=== PATIENT | male | born 1975 | race Caucasian/White ===

== ENCOUNTER 2024-02-02 11:09 | Outpatient (CLI) | payer BC, SELFPAY ==
--- NOTE | ~2024-02-02 | XR_ITS ---
XR hip RT min 2V Ordering provider: Li Parker NP History: . Chronic RT hip pain, NKI . Comparison: September 21, 2017 FINDINGS: BONES: No acute fracture or dislocation. HIP JOINT SPACES: Severe osteoarthritic changes which has increased compared to previous study.. SACROILIAC JOINT SPACES/LUMBAR SPINE: The sacroiliac joint spaces are normal. Mild degenerative bahena es of the visualized lower lumbar spine. PUBIC SYMPHYSIS: Normal. SOFT TISSUES: Normal. IMPRESSION: No acute osseous abnormality pelvis and right hip. Severe osteoarthritic changes which has increased compared to previous study.. Reviewed, dictated and finalized at location A.
== END 2024-02-02 11:10 | disposition home or self-care (01) ==
LOC: CHSIMG 11:11
PROVIDERS: PCP Nurse Practitioner Family; Visit Provider Nurse Practitioner Family
DX: G89.29 Other chronic pain (principal); M25.551 Pain in right hip; M16.11 Unilateral primary osteoarthritis, right hip
CPT/HCPCS: 73502

== ENCOUNTER 2024-02-28 10:07 | Outpatient (CLI) | payer BC, SELFPAY ==
--- NOTE | 2024-02-28 10:26 | ECG_ITS ---
Test Date: 2024-02-28 10:33:20 Measurements Intervals [place] Rate: 67 P: -16 TN: 170 QRS: 28 QRSD: 114 T: 21 QT: 404 QTc: 427 Interpretive Statements SINUS RHYTHM INCOMPLETE RIGHT BUNDLE BRANCH BLOCK BORDERLINE ECG No previous ECG available for comparison Electronically Signed On 02-28-2024 11:34:06 CDT by Newton Groves D.O.
[2024-02-28 10:35] LABS: Appearance Urine Clear (Clear); Bilirubin Urine Negative (Negative); Blood Urine Negative (Negative); Color Urine Yellow (Yellow); Glucose Urine UA Negative (Negative); Ketones Urine Negative (Negative); Leukocyte Esterase Ur Negative LEU/UL (Negative); Nitrate Urine Negative (Negative); Protein Urine Negative (Negative); Specific Grav Ur 1.015 (1.001-1.035); Urobilinogen Urine 0.2 mg/dL (<2.0); pH Urine 5.5 (5.0-9.0)
[2024-02-28 10:39] LABS: Add Urine Microscopic? NO
[2024-02-28 10:41] LABS: Basophils Percent Auto 0.7 % (0.2-1.2); Eosinophils Absolute Auto 0.2 K/mm3 (0-0.3); Eosinophils Percent Auto 3.4 % (0-4.4); Hematocrit 42.8 % (42.0-52.0); Immature Granulocyte Absolute 0.01 K/mm3 (0.00-0.031); Immature Granulocyte Percent A 0.2 % (0-0.5); Lymphocytes Absolute Auto 1.84 K/mm3 (0.9-3.2); Lymphocytes Percent Auto 30.8 % (18.3-44.2); Mean Corpuscular HGB Conc 32.7 g/dl (32-36); Mean Corpuscular Hemoglobin 31.3 pg (26-34); Mean Corpuscular Volume 95.7 fl (80-100); Monocytes Absolute Auto 0.5 K/mm3 (0.1-0.6); Monocytes Percent Auto 8.5 % (2.6-8.5); Neutrophils Absolute Auto 3.4 K/mm3 (1.3-6.7); Neutrophils Percent Auto 56.4 % (45.5-73.1); Platelet Count Result 192 k/mm3 (150-375); Red Blood Count 4.47 M/mm3 (4.6-6.20); Red Cell Distribution Width 13.2 % (11.5-14.5)
[2024-02-28 10:55] LABS: Anion Gap 7 mmol/L (4-12); Blood Urea Nitrogen 33 mg/dL (9-20); Calcium 8.8 mg/dL (8.4-10.2); Carbon Dioxide 29 mmol/L (22-30); Chloride 102 mmol/L (98-107); Estimated Glomerular Filt Rate > 60; Glucose 96 mg/dL (65-110); Potassium 4.3 mmol/L (3.4-5.0); Sodium 138 mmol/L (137-145)
== END 2024-02-28 10:08 | disposition home or self-care (01) ==
PROVIDERS: PCP Nurse Practitioner Family; Visit Provider Orthopaedic Surgery
DX: E78.5 Hyperlipidemia, unspecified (principal); I10 Essential (primary) hypertension; R53.83 Other fatigue; E53.8 Deficiency of other specified B group vitamins; I45.10 Unspecified right bundle-branch block
CPT/HCPCS: 36415; 80048; 81003; 85025; 93005

== ENCOUNTER 2024-03-23 11:50 | Outpatient (CLI) | payer BC, SELFPAY ==
[2024-03-23 13:45] LABS: Albumin Level 4.2 g/dL (3.5-5.1)
[2024-03-23 13:49] LABS: Partial Thromboplastin Time 25.5 Seconds (22.3-36.8)
[2024-03-23 13:50] LABS: Urine Cotinine NEGATIVE
[2024-03-23 13:58] LABS: Hemoglobin A1C 5.4 % (<5.7)
[2024-03-23 14:48] LABS: MRSA (PCR) NOT DETECTED (NOT DETECTE)
== END 2024-03-23 11:51 | disposition home or self-care (01) ==
LOC: ANHSURGERY 11:54
PROVIDERS: PCP Nurse Practitioner Family; Visit Provider Orthopaedic Surgery
DX: M16.11 Unilateral primary osteoarthritis, right hip (principal); Z01.818 Encounter for other preprocedural examination
CPT/HCPCS: 80307; 82040; 83036; 85610; 85730; 86850; 86900; 86901; 87641

== ENCOUNTER 2024-04-05 01:33 | Day surgery (SDC) | payer BC, SELFPAY ==
[2024-03-23 11:59] VITALS: BMI 32.0
--- NOTE | 2024-03-23 12:27 | PC.NURSE ---
Report to the Outpatient Waiting Room, entrance under the green pavilion located off [facility], at time _6:00 AM on date __04/05/24 . Planned Procedure Time: _7:30 AM . Time changes happen often and if your time is changed the preop area will call you the afternoon before. - You and your visitor will be asked to self-screen and do not enter if you have any COVID symptoms. - A mask is optional within the hospital at this time. Patients may have clear liquids (water, carbonated beverages, clear teas, apple juice) until 3 hours prior to surgery( 4:30 AM) with a maximum of 20 ounces. - No food from midnight until time of surgery - Infants may have breast milk until 4 hours before surgery, infant formula 6 hours prior to surgery. - Children will be allowed to drink immediately following surgery. If applicable, please bring a bottle or sippy cup to assist with drinking. Juice, water, soda, and popsicles are readily available. For infants on formula, please bring formula the day of surgery. Pacifiers are allowed. Take the following medications with a SIP of water the morning of surgery: ___BUSPIRONE,HYDROXYZINE IF NEEDED FOR ANXIETY,METOPROLOL,VENLAFAXINE,VERAPAMIL DO NOT STOP ANY OF YOUR OTHER PRESCRIPTION MEDICATIONS PRIOR TO SURGERY ?EXCEPT THE FOLLOWING Medications to discontinue per physician ____ASPIRIN AND MELOXICAM PER DR FATIMA,HOLD ALL VITAMINS AND SUPPLEMENT 3 DAYS PRE OP.LAST DOSE 04/01/24 Please no make-up, nail french, hairspray, perfume, deodorant, or body powder the day of surgery. No jewelry (including any body piercings) or valuables the day of surgery, leave them at home. Please take a shower or bath the night before, or the morning of, surgery with an antibacterial soap. Wear comfortable, loose fitting clothing. Children are encouraged to wear pajamas. - Jewelry must be removed prior to entering the operating room. Rings and piercings that are not removed may be cut off. - The hospital will not accept responsibility for valuables. - Please leave all valuables, including medications, at home the day of surgery. If you are going home after surgery, a licensed oil transport driver must drive you home. - NO public transportation without another adult if you receive anesthesia. - We recommend that an adult stay with you for 24 hours following discharge. - We also recommend that you do not drive, make important decision, drink alcoholic beverages, or take any drugs that were not prescribed by your health care provider for at least 24 hours after your discharge time. Follow any additional instructions given to you from your surgeon. If you or anyone in your household have experienced Covid symptoms in the past week, please notify your surgeon or the nurse liaison at the phone number below for possible testing. VERBAL AND WRITTEN instructions given to __PATIENT and asked if any additional questions and then verbalized understanding. Patient advised to call surgeon office or pre surgery nurse liaison [phone] if any additional questions.
[2024-03-23 12:50] VITALS: BP 125/80; PULSE 81; RESP 18; TEMP 36.8; O2SAT 98
[2024-04-05] VITALS (7 sets, daily range): BP systolic 104–117; BP diastolic 59–66; PULSE 62–76; RESP 13–18; TEMP 36.3–36.7; O2SAT 99–100; BMI 31.6
[2024-04-05] MEDS: LACTATED RINGERS 1,000 ML 30 ML IV CONT ×2 (06:30→08:50)
--- NOTE | 2024-04-05 07:07 | WPDANESEPPF ---
Anes - Initial Pre Proc Eval Procedure: Operation Date: 04/05/24 07:30 Proposed Procedures p Right Total Hip Arthroplasty - Pino Escudero MD Date/Time: 04/05/24 07:07 Surgeon: Pino Escudero MD Pre Op Diagnosis: right hip DJD Patient Data Age: 48 Gender: M Height: 1.8 m Weight: 104.2 kg Last Vital Signs Temp 98.3 F 03/23/24 12:50 Pulse 81 03/23/24 12:50 Resp 18 03/23/24 12:50 BP 125/80 03/23/24 12:50 Pulse Ox 98 03/23/24 12:50 O2 Del Method Room Air 03/23/24 12:50 Allergies Allergy/AdvReac Type Severity Reaction Status Date / Time No Known Allergies Allergy Verified 03/27/24 12:52 Home Medications Medication Instructions Recorded Confirmed Type buspirone 30 mg tablet 30 mg PO BID 06/13/19 03/23/24 History clonidine HCl 0.1 mg tablet 0.1 mg PO DAILY 06/13/19 03/23/24 History hydroxyzine HCl 25 mg tablet 25 mg PO QID PRN Anxiety 09/15/19 03/23/24 History venlafaxine 37.5 mg 37.5 mg PO DAILY 09/15/19 03/23/24 History capsule,extended release 24 hr atorvastatin 20 mg tablet See Rx Instructions .Route 04/27/23 03/23/24 Rx .COMPLEX #90 tabs verapamil 120 mg 24 hr See Rx Instructions .Route 04/27/23 03/23/24 Rx capsule,extended release .COMPLEX #90 caps metoprolol succinate 50 mg See Rx Instructions .Route 04/30/23 03/23/24 Rx tablet,extended release 24 hr .COMPLEX #90 tabs trazodone 50 mg tablet See Rx Instructions .Route 05/07/23 03/23/24 Rx .COMPLEX #90 tabs meloxicam 7.5 mg tablet 7.5 mg PO BID PRN pain #60 tabs 02/02/24 03/23/24 Rx aspirin 81 mg tablet,delayed 81 mg PO DAILY 03/23/24 03/23/24 History release (Adult Low Dose Aspirin) glucosamine-chondroitin 500 mg-400 1 tablet PO DAILY 03/23/24 03/23/24 History mg tablet magnesium 200 mg tablet 200 mg PO DAILY 03/23/24 03/23/24 History omeprazole 20 mg capsule,delayed 20 mg PO DAILY 03/23/24 03/23/24 History release potassium 99 mg tablet 99 mg PO DAILY 03/23/24 03/23/24 History vitamin B complex 1 tablet PO DAILY 03/23/24 03/23/24 History vitamin E 1,000 unit tablet 1 tablet PO DAILY 03/23/24 03/23/24 History chlorhexidine gluconate 4 % 1 applic topical ONCE #237 mL 03/24/24 Rx topical liquid (Hibiclens) Patient hx anesthesia problems: none Family hx anesthesia problems: none Results Review: All pre-operative results and documents have been reviewed as part of the pre-operative evaluation. 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 Chronic low back pain ABNER (generalized anxiety disorder) ABNER (generalized anxiety disorder) H/O deep venous thrombosis HTN (hypertension) Hyperlipemia Hyperlipidemia Hypertension Insomnia Insomnia Osteoarthritis Overweight Severe obesity (BMI >= 40) Sinusitis Vitamin B12 deficiency Vitamin B12 deficiency Surgical History Surgical History History of back surgery Hx of right inguinal hernia repair Family History Family History Father Hypertension Mother Anxiety Social History Social History Smoking packs per day: 0.5 Smoking cigarettes per day: 10.0 Years smoked: 5 Smoking pack-years: 2.50 Smoking status: Former smoker Tobacco type: cigarettes Smoking end date: 08/09/94 Additional smoking assessment comments: DENIES ANY FORM OF TOBACCO USE Alcohol intake: current Alcohol use details: social Substance use: never Substance use type: does not use Lack of Transportation: No Lack of Food: Never True Current Housing: I Have Housing Concerned About Future Housing: No Difficulty Paying Gas/Electric Bills: No Difficulty Paying for Meds: No Currently Unemployed: No Education: High School Diploma/GED Living arrangements: with fa
[2024-04-05] MEDS: ACETAMINOPHEN 500 MG TABLET 1000 MG PO (07:08)
[2024-04-05] MEDS: TRANEXAMIC ACID 1,000MG/ISO100 1,000 MG/100 ML BAG 200 MG IVPB (07:10)
--- NOTE | 2024-04-05 07:16 | WPDHPUPDATE1 ---
History and Physical Update Update Date/Time: 04/05/24 07:16 History and Physical has been reviewed, including an updated exam of the patient. There are NO changes in the patient's condition. Risks, benefits, and alternatives have been discussed and questions answered. Patient agrees to proceed with procedure.
[2024-04-05] MEDS: ceFAZolin 2 GM/D5W 50 ML 2 GM/50 ML BAG IVPB (07:33)
--- NOTE | 2024-04-05 09:31 | W.PM.PROC2 ---
Procedure Note - Detailed Date of Procedure 04/05/24 Pre-op Diagnosis right hip DJD Post-op Diagnosis Same Procedure Performed NONE Surgeon Pino Escudero MD Anesthesia General Description of Procedure THE PATIENT WAS TAKEN TO THE OPERATING ROOM AND PLACED UNDER GENERAL ANESTHESIA. ONCE HE WAS PLACED IN THE LATERAL DECUBITUS HE HAD MASSIVE AMOUNTS OF DIARRHEA WITH FOUL SMELLING FECAL MATERIAL. HE WAS CLEANED AND HE HAD RECURRENT DIARRHEA MULTIPLE TIMES. GASTRO INTESTINAL INFECTION WAS SUSPECTED. THIS POSED A RISK FOR CONTAMINATION TO THE STERILE FIELD AND WITH ADVICE FROM THE OPERATION ROOM CHARGE STAFF AND MYSELF THE CASE WAS CANCELLED DUE TO RISK OF CONTAMINATION TO THE INSTRUMENTATION. THE PATIENT WAS EXTUBATED AND SENT TO RECOVERY ROOM. Estimated Blood Loss 0 Complications None Disposition PACU
== END 2024-04-05 10:05 | disposition home or self-care (01) ==
PROVIDERS: PCP Nurse Practitioner Family; Visit Provider Orthopaedic Surgery
PROC: (CPT 27130; principal; 2024-04-05 07:30)
DX: M16.11 Unilateral primary osteoarthritis, right hip (principal); R19.7 Diarrhea, unspecified; Z53.09 Procedure and treatment not carried out because of other contraindication; D47.Z2 Castleman disease; I10 Essential (primary) hypertension; E78.5 Hyperlipidemia, unspecified; E53.8 Deficiency of other specified B group vitamins; F41.1 Generalized anxiety disorder; Z86.718 Personal history of other venous thrombosis and embolism; Z87.891 Personal history of nicotine dependence; Z79.82 Long term (current) use of aspirin; E66.9 Obesity, unspecified; Z68.31 Body mass index [BMI] 31.0-31.9, adult
CPT/HCPCS: 27130; A9270; J0171; J0690; J1100; J1170; J1596; J1885; J2250; J2270; J2371; J2405; J2704; J2795; J3010; J7120

== ENCOUNTER 2024-04-07 14:57 | Outpatient (CLI) | payer BC, SELFPAY ==
[2024-04-07 15:57] LABS: Toxigenic C. Diff NEGATIVE (NEGATIVE)
== END 2024-04-07 14:58 | disposition home or self-care (01) ==
LOC: CHSLAB 14:59
PROVIDERS: PCP Nurse Practitioner Family; Visit Provider Nurse Practitioner Family
DX: R19.7 Diarrhea, unspecified (principal)
CPT/HCPCS: 87493

== ENCOUNTER 2024-04-19 02:24 | Day surgery (SDC) | payer BC, SELFPAY ==
[2024-04-12 15:10] VITALS: BMI 32.0
--- NOTE | 2024-04-12 15:17 | PC.NURSE ---
04/05/24 ON OR TABLE FOR RTHA- HAD FOUL SMELLING DIARRHEA- SURGERY CANCELLED. STATES HE WENT TO HIS PCP. UNKNOWN CAUSE FOR DIARRHEA. NO OTHER CHANGE IN HEALTH HX
--- NOTE | 2024-04-12 15:19 | PC.NURSE ---
Report to the Outpatient Waiting Room, entrance under the green pavilion located off [facility], at time _6AM on date _04/19/24 . Planned Procedure Time: __730AM .? Time changes happen often and if your time is changed the preop area will call you the afternoon before. - You and your visitor will be asked to self-screen and do not enter if you have any COVID symptoms. Please call surgeon(4:30 AM) if you need to reschedule. - A mask is optional within the hospital at this time. Patients may have clear liquids (water, carbonated beverages, clear teas, apple juice) until 3 hours prior to surgery with a maximum of 20 ounces. - No food from midnight until time of surgery and no smoking - Infants may have breast milk until 4 hours before surgery, infant formula 6 hours prior to surgery. - Children will be allowed to drink immediately following surgery.? If applicable, please bring a bottle or sippy cup to assist with drinking. Juice, water, soda, and popsicles are readily available.? For infants on formula, please bring formula the day of surgery.? Pacifiers are allowed. Take only the following medications with a SIP of water on the morning of surgery:BUSPIRONE,HYDROXYZINE IF NEEDED FOR ANXIETY,METOPROLOL,VENLAFAXINE,VERAPAMIL DO NOT STOP ANY OF YOUR OTHER PRESCRIPTION MEDICATIONS PRIOR TO SURGERY EXCEPT THE FOLLOWING Medications to discontinue per physician _ASPIRIN AND MELOXICAM PER DR FATIMA. HOLD ALL VITAMINS AND SUPPLEMENTS 3 DAYS PRE OP LAST DOSE 04/15/24 Date to take last dose Please no make-up, nail italian, hairspray, perfume, deodorant, or body powder the day of surgery.? No jewelry (including any body piercings) or valuables the day of surgery, leave them at home.? Please take a shower or bath the night before, or the morning of, surgery with an antibacterial soap.? Wear comfortable, loose fitting clothing.? Children are encouraged to wear pajamas. - Jewelry must be removed prior to entering the operating room.? Rings and piercings that are not removed may be cut off. - The hospital will not accept responsibility for valuables.? - Please leave all valuables, including medications, at home the day of surgery. If you are going home after surgery, a licensed tanker truck driver must drive you home.? - NO public transportation without another adult if you receive anesthesia. - We recommend that an adult stay with you for 24 hours following discharge. - We also recommend that you do not drive, make important decision, drink alcoholic beverages, or take any drugs that were not prescribed by your health care provider for at least 24 hours after your discharge time. For Pediatric surgeries, we recommend two adults accompany the child home. Follow any additional instructions given to you from your surgeon. Telephone instructions given to __PT and asked if any additional questions and then verbalized understanding. Patient advised to call surgeon office or pre surgery nurse liaison [phone] if any additional questions.
[2024-04-19] VITALS (12 sets, daily range): BP systolic 95–118; BP diastolic 47–73; PULSE 57–82; RESP 12–16; TEMP 35.9–37.1; O2SAT 98–100
--- NOTE | ~2024-04-19 | XR_ITS ---
EXAMINATION: XR hip RT 1V DATE: 04/19/2024 11:36 INDICATION: Postoperative evaluation following right total hip arthroplasty TECHNIQUE: Anteroposterior and lateral views of the right hip were obtained. COMPARISON: 02/28/2024 FINDINGS: Interval placement of a right total hip arthroplasty which appears well seated in near anatomic align ment. Expected subcutaneous gas in the postoperative bed. No fractures identified. Several surgical clips in the right hemipelvis. IMPRESSION: 1. Right total hip arthroplasty, negative for postoperative purposes. Reviewed, dictated and finalized at location B.
[2024-04-19] MEDS: ACETAMINOPHEN 500 MG TABLET 1000 MG PO (06:20)
[2024-04-19] MEDS: LACTATED RINGERS 1,000 ML 30 ML IV CONT ×2 (06:25→11:27)
[2024-04-19] MEDS: TRANEXAMIC ACID 1,000MG/ISO100 1,000 MG/100 ML BAG 200 MG IVPB (06:30)
--- NOTE | 2024-04-19 07:04 | WPDANESEPPF ---
Anes - Initial Pre Proc Eval Procedure: Operation Date: 04/19/24 07:30 Proposed Procedures p Right Total Hip Arthroplasty - Pino Escudero MD Date/Time: 04/19/24 07:04 Surgeon: Pino Escudero MD Pre Op Diagnosis: Right Hip DJD Patient Data Age: 48 Gender: M Height: 1.8 m Weight: 101.3 kg Last Vital Signs Temp 37.1 C 04/19/24 06:10 Pulse 71 04/19/24 06:10 Resp 16 04/19/24 06:10 BP 110/63 04/19/24 06:10 Pulse Ox 100 04/19/24 06:10 O2 Del Method Room Air 04/19/24 06:10 Allergies Allergy/AdvReac Type Severity Reaction Status Date / Time No Known Allergies Allergy Verified 04/19/24 06:31 Home Medications Medication Instructions Recorded Confirmed Type buspirone 30 mg tablet 30 mg PO BID 06/13/19 04/19/24 History clonidine HCl 0.1 mg tablet 0.1 mg PO DAILY 06/13/19 04/19/24 History hydroxyzine HCl 25 mg tablet 25 mg PO QID PRN Anxiety 09/15/19 04/19/24 History venlafaxine 37.5 mg 37.5 mg PO DAILY 09/15/19 04/19/24 History capsule,extended release 24 hr atorvastatin 20 mg tablet See Rx Instructions .Route 04/27/23 04/19/24 Rx .COMPLEX #90 tabs verapamil 120 mg 24 hr See Rx Instructions .Route 04/27/23 04/19/24 Rx capsule,extended release .COMPLEX #90 caps meloxicam 7.5 mg tablet 7.5 mg PO BID PRN pain #60 tabs 02/02/24 04/19/24 Rx aspirin 81 mg tablet,delayed 81 mg PO DAILY 03/23/24 04/19/24 History release (Adult Low Dose Aspirin) glucosamine-chondroitin 500 mg-400 1 tablet PO DAILY 03/23/24 04/19/24 History mg tablet magnesium 200 mg tablet 200 mg PO DAILY 03/23/24 04/19/24 History omeprazole 20 mg capsule,delayed 20 mg PO DAILY 03/23/24 04/19/24 History release potassium 99 mg tablet 99 mg PO DAILY 03/23/24 04/19/24 History vitamin B complex 1 tablet PO DAILY 03/23/24 04/19/24 History vitamin E 1,000 unit tablet 1 tablet PO DAILY 03/23/24 04/19/24 History metoprolol succinate 50 mg See Rx Instructions .Route 04/17/24 Rx tablet,extended release 24 hr .COMPLEX #90 tabs trazodone 50 mg tablet See Rx Instructions .Route 04/17/24 Rx .COMPLEX #90 tabs Patient hx anesthesia problems: none Family hx anesthesia problems: none Results Review: All pre-operative results and documents have been reviewed as part of the pre-operative evaluation. 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 Chronic low back pain ABNER (generalized anxiety disorder) ABNER (generalized anxiety disorder) H/O deep venous thrombosis HTN (hypertension) Hyperlipemia Hyperlipidemia Hypertension Insomnia Insomnia Osteoarthritis Overweight Sinusitis Vitamin B12 deficiency Vitamin B12 deficiency Surgical History Surgical History History of back surgery Hx of right inguinal hernia repair Family History Family History Father Hypertension Mother Anxiety Social History Social History Smoking packs per day: 0.5 Smoking cigarettes per day: 10.0 Years smoked: 5 Smoking pack-years: 2.50 Smoking status: Former smoker Tobacco type: cigarettes Smoking end date: 08/09/94 Additional smoking assessment comments: DENIES ANY FORM OF TOBACCO USE Alcohol intake: current Alcohol use details: social Substance use: never Substance use type: does not use Lack of Transportation: No Lack of Food: Never True Current Housing: I Have Housing Concerned About Future Housing: No Difficulty Paying Gas/Electric Bills: No Difficulty Paying for Meds: No Currently Unemployed: No Education: High School Diploma/GED Living arrangements: with family Additional living arrangements comments: . 1 Child. Occupation/Education: occupation Additional occupation/educatio
--- NOTE | 2024-04-19 07:17 | WPDHPUPDATE1 ---
History and Physical Update Update Date/Time: 04/19/24 07:17 History and Physical has been reviewed, including an updated exam of the patient. There are NO changes in the patient's condition. Risks, benefits, and alternatives have been discussed and questions answered. Patient agrees to proceed with procedure.
[2024-04-19] MEDS: ceFAZolin 2 GM/D5W 50 ML 2 GM/50 ML BAG IVPB ×3 (07:28→23:36)
[2024-04-19] MEDS: SODIUM CHLORIDE 0.9% IV 37.7 ML, MORPHINE SULFATE INJ (*CRX) 2 MG, ROPivacaine HCL 1% 2... INFILTRATE (08:12)
[2024-04-19] MEDS: TRANEXAMIC ACID 1,000 MG/10 ML AMPUL 1000 MG IV PUSH (10:23)
--- NOTE | 2024-04-19 11:23 | W.PM.PROC2 ---
Procedure Note - Detailed Date of Procedure 04/19/24 Pre-op Diagnosis Right Hip DJD Post-op Diagnosis Same Procedure Performed R KESHA Surgeon Pino Escudero MD Anesthesia General Description of Procedure THE PATIENT WAS TAKEN TO THE OPERATING ROOM IN STABLE CONDITION AND WAS PLACED IN THE LATERAL DECUBITUS AND THE RIGHT LOWER EXTREMITY WAS PREPPED AND DRAPED IN THE STERILE FASHION. INCISION WAS MADE IN THE POSTERIOR LATERAL SIDE OF THE HIP, DOWN TO THE FASCIA LAYER. THE FASCIA WAS INCISED. THE HIP WAS EXPOSED. THE SHORT EXTERNAL ROTATORS WERE EXPOSED. THE SCIATIC NERVE WAS IDENTIFIED. INCISION WAS MADE THROUGH THE SHORT EXTERNAL ROTATORS AND THE CAPSULE OF THE HIP JOINT. THE HIP WAS DISLOCATED. AN OSTEOTOMY WAS MADE TO THE FEMORAL NECK ABOUT 1 CM PROXIMAL TO THE LESSER TROCHANTER. THE ACETABULUM WAS EXPOSED. THERE WAS SEVERE DJD SEEN. BEGINNING WITH A 49 REAMER THE ACETABULUM WAS REAMED TO 57 MM. A 57 MM TRIAL WAS PLACED IN 35 DEG OF ABDUCTION AND ANTEVERSION WAS IN ALIGNMENT WITH THE TRANS ACETABULAR LIGAMENT. THE FIT WAS EXCELLENT. THE TRIAL WAS REMOVED. A 58 MM BIOMET G7 COMPONENT WAS THEN TAPPED IN TO PLACE IN 35 DEG OF ABDUCTION AND ANTEVERSION IN ALIGNMENT WITH THE TRANSVERSE ACETABULAR LIGAMENT. THE FIT WAS EXCELLENT. THE ACETABULAR LINER WAS PLACED AND CHECKED FOR STABILITY. NEXT THE FEMUR WAS PREPARED WITH INITIAL CANAL FINDER THEN SEQUENTIAL BROACHING WITH A TAPERLOC HIP SYSTEM, UNTIL A 9 BROACH FIT WELL IN 15 OF ANTEVERSION. A 0 HIGH OFFSET NECK WITH 36 MM HEAD TRIAL WAS PLACED. THE SHUCK TEST WAS EXCELLENT AND THE STABILITY IN FLEXION AND ROTATION WAS EXCELLENT. LEG LENGTHS WERE GROSSLY EQUAL. TRIALS WERE REMOVED. A BIOMET TAPERLOC 9 STEM WAS PLACED WITH A HIGH OFFSET NECK. THE FIT WAS EXCELLENT IN 15 DEG OF ANTEVERSION. A 0 CERAMIC 36 MM FEMORAL HEAD WAS PLACED. THE HIP WAS TRIALED AND THE STABILITY WAS EXCELLENT WERE THE LEG LENGTHS AND THE SHUCK TEST. THE WOUND WAS IRRIGATED WITH STERILE BETADINE AND WATER FOR 3 MIN. THEN WASHED AGAIN. THE SCIATIC NERVE WAS IDENTIFIED AGAIN. THE CAPSULE AND THE EXTERNAL ROTATORS WERE APPROXIMATED WITH NUMBER 1 VICRYL. THE FASCIA WITH No 2 QUIL AND THE SUB CUTANEOUS LAYER WITH 2-0 ABSORBABLE SUTURE AND A RUNNING 3-0 SUBCUTICULAR STITCH FOR THE SKIN. DERMABOND WAS PLACED AND STERILE DRESSING WAS APPLIED. PATIENT WAS PLACED BACK ON TO THE SUPINE POSITION AND WAS EXTUBATED Estimated Blood Loss 1,000 Complications No immediate complications Condition Stable Disposition PACU
[2024-04-19] MEDS: fentaNYL CITRATE INJ (*CRX) 100 MCG/2 ML VIAL 25 MCG IV PUSH (11:38)
--- NOTE | 2024-04-19 12:00 | SUR.PHASEI ---
Notified Dr. Ho of patient's complaint of right eye pain with redness and slight swelling. Corneal abrasion protocol ordered.
[2024-04-19] MEDS: ARTIFICIAL TEARS OPHTH SOLN 15 ML BOTTLE 1 DROP EACH EYE (12:09)
[2024-04-19] MEDS: PROPARACAINE HCL 0.5% 15 ML OPHTH SOLN 1 DROP EACH EYE (12:09)
--- NOTE | 2024-04-19 13:14 | PC.NURSE ---
This patient, Julien Maddox, was admitted to [facility] Surg Room 303-01. Patient/family oriented to hospital policies and general routines including ID bracelet, bed and alarms, visiting hours, pain management, procedures, bathroom and other care routines, personal items, smoking policy, room service/diet, and visiting hours. Information on how to activate the Rapid Response Team has been discussed. Patient/Family are encouraged to report perceived risks to care and to ask questions if they do not understand what they are told or what they should do.
[2024-04-19] MEDS: FAMOTIDINE 20 MG TABLET PO ×2 (13:21→20:27)
[2024-04-19] MEDS: ASPIRIN 325 MG ENTERIC TABLET PO ×2 (13:21→20:26)
[2024-04-19] MEDS: SENNA/DOCUSATE SODIUM TABLET 2 TAB PO ×2 (13:21→17:39)
[2024-04-19] MEDS: KETOROLAC 15 MG/ML VIAL (*BKC) IV PUSH ×3 (13:22→23:35)
[2024-04-19] MEDS: polyethylene glycoL 3350 17 GM POWD.PACK PO (13:23)
[2024-04-19] MEDS: HYDROcodone/acetaminophen (*CRX) 10-325 MG TABLET 1 TAB PO (13:29)
[2024-04-19] MEDS: ONDANSETRON INJ 4 MG/2 ML VIAL IV PUSH (15:19)
[2024-04-19] MEDS: busPIRone HCL 10 MG TABLET 30 MG PO (17:39)
[2024-04-19] MEDS: ACETAMINOPHEN 500 MG TABLET PO (20:25)
[2024-04-19] MEDS: cloNIDine HCL 0.1 MG TABLET PO (20:26)
[2024-04-19] MEDS: ATORVASTATIN 20 MG TABLET BY MOUTH (20:27)
[2024-04-20 02:20] VITALS: BP 106/61; PULSE 71; RESP 18; TEMP 36.4; O2SAT 99
[2024-04-20] MEDS: KETOROLAC 15 MG/ML VIAL (*BKC) IV PUSH ×2 (05:29→12:15)
[2024-04-20 05:54] VITALS: BP 106/60; PULSE 72; RESP 16; TEMP 36.4; O2SAT 99
[2024-04-20 06:35] LABS: Basophils Percent Auto 0.2 % (0.2-1.2); Eosinophils Absolute Auto 0.1 K/mm3 (0-0.3); Eosinophils Percent Auto 0.6 % (0-4.4); Hematocrit 32.5 % (42.0-52.0); Hemoglobin 10.6 g/dL (14.0-18.0); Immature Granulocyte Absolute 0.05 K/mm3 (0.00-0.031); Immature Granulocyte Percent A 0.5 % (0-0.5); Lymphocytes Absolute Auto 0.89 K/mm3 (0.9-3.2); Lymphocytes Percent Auto 9.6 % (18.3-44.2); Mean Corpuscular HGB Conc 32.6 g/dl (32-36); Mean Corpuscular Hemoglobin 31.7 pg (26-34); Mean Corpuscular Volume 97.3 fl (80-100); Mean Platelet Volume 10.4 fl (7.4-10.4); Monocytes Absolute Auto 0.7 K/mm3 (0.1-0.6); Monocytes Percent Auto 7.8 % (2.6-8.5); Neutrophils Absolute Auto 7.5 K/mm3 (1.3-6.7); Neutrophils Percent Auto 81.3 % (45.5-73.1); Platelet Count Result 146 k/mm3 (150-375); Red Blood Count 3.34 M/mm3 (4.6-6.20); Red Cell Distribution Width 13.3 % (11.5-14.5); White Blood Count 9.3 K/mm3 (4.5-10.0)
[2024-04-20 06:40] LABS: Anion Gap 4 mmol/L (4-12); Blood Urea Nitrogen 21 mg/dL (9-20); Calcium 8.2 mg/dL (8.4-10.2); Carbon Dioxide 31 mmol/L (22-30); Chloride 102 mmol/L (98-107); Estimated CRCL calculation 132 ml/min; Estimated Glomerular Filt Rate > 60; Glucose 105 mg/dL (65-110); Potassium 4.5 mmol/L (3.4-5.0); Sodium 137 mmol/L (137-145)
[2024-04-20] MEDS: ASPIRIN 325 MG ENTERIC TABLET PO (08:10)
[2024-04-20] MEDS: SENNA/DOCUSATE SODIUM TABLET 2 TAB PO (08:12)
[2024-04-20 08:13] VITALS: PULSE 70
[2024-04-20] MEDS: FAMOTIDINE 20 MG TABLET PO (08:13)
[2024-04-20] MEDS: METOPROLOL SUCCINATE EXT REL 50 MG TABCR PO (08:13)
[2024-04-20] MEDS: VERAPAMIL HCL ER 120 MG TABLET BY MOUTH (08:14)
[2024-04-20] MEDS: VENLAFAXINE HCL XR 37.5 MG CAP PO (08:15)
[2024-04-20] MEDS: POTASSIUM CHLORIDE 10 MEQ ER TABLET PO (08:15)
[2024-04-20] MEDS: polyethylene glycoL 3350 17 GM POWD.PACK PO (08:15)
[2024-04-20] MEDS: busPIRone HCL 10 MG TABLET 30 MG PO (08:16)
[2024-04-20] MEDS: ceFAZolin 2 GM/D5W 50 ML 2 GM/50 ML BAG IVPB (08:17)
[2024-04-20] MEDS: oxyCODONE/ACETAMINOPHEN (*CRX) 5-325 MG TABLET 1 TABLET PO (08:25)
--- NOTE | 2024-04-20 11:43 | PM.PNORT ---
Progress Note: A&P Assessment and Plan (1) S/P total hip arthroplasty: Qualifiers: Laterality: right Qualified Code(s): Z96.641 - Presence of right artificial hip joint Code(s): Z96.649 - Presence of unspecified artificial hip joint Status: Acute Assessment and Plan: POD #1 : Right KESHA Continue PT/OT. WBAT. Walker. HIGH FALL RISK. Continue pain control. Ice Hip. Protect skin. DVT prophylaxis with Aspirin. SCDs. Incentive Spirometry Use reviewed. Monitor Dressing. Change prior to discharge. Bowel Regimen. Dispo: Home with Home Health pending progress with PT/OT Plan Reviewed history, exam, radiographs and current labs with attending MD and covering surgeon, Dr. Escudero, who agrees with current plan as indicated above. No further recommendations from Dr. Escudero at this time. Subjective Subjective Date/Time Seen: 04/20/24 11:43 Post Op day: 1 Principal diagnosis: Right Hip DJD Interval history: POD #1: Right KESHA Patient doing very well. Pain well controlled. No new concerns. Hopeful for d/c home today. Review of Systems Review of Systems: All systems reviewed & are unremarkable except as noted in HPI and below Constitutional: Constitutional: Denies chills, Denies fever(s), Denies headache(s), Denies lethargy and Reports weakness ENT: Denies headache(s) Cardiovascular: Cardiovascular: Denies chest pain, Denies diaphoresis, Denies lightheadedness, Denies palpitations, Denies dyspnea and Denies dyspnea on exertion Respiratory: Respiratory: Denies cough, Denies dyspnea and Denies dyspnea on exertion Gastrointestinal: Gastrointestinal: Denies constipation, Denies diarrhea, Denies nausea and Denies vomiting Genitourinary: Genitourinary: Denies dysuria, Reports urinary frequency and Denies urinary hesitancy Musculoskeletal: Musculoskeletal: Reports joint swelling (Right Hip ) and Reports limited range of motion (Right Hip due to recent surgery ) Neurologic: Denies headache(s) and Reports weakness Endocrine: Endocrine: Denies palpitations Exam Const: General: comfortable and no acute distress Resp: Effort & Inspection: normal respiratory effort Cardio: Rate: regular rate Rhythm: regular rhythm GI: Inspection: non-distended Skin: General skin exam: normal color Other: Incision right hip c/d/i. Surrounding tissue without redness/warmth. Mild swelling consistent with recent surgery. No drainage. Neuro: Cognition (Neuro): normal cognition Speech: normal speech Extrem: Right lower extremity: normal to inspection, normal capillary refill, hip/thigh Details: tenderness Location: of the hip (Thigh soft ) Location: laterally and anteriorly, swelling Location: at the hip, abnormal ROM (limited consistent with recent surgery ) Details: pain with active ROM during and pain with passive ROM during and other (Incision c/d/i. ); no deformity and no unusual warmth, knee Details: normal to inspection; no tenderness and no swelling, lower leg (Negative Edgar's Sign ) Details: normal to inspection and no edema; no tenderness, ankle (+ankle dorsiflexion/plantarflexion) Details: normal to inspection and no edema; no tenderness, no swelling and no ecchymosis and foot Details: normal capillary refill, toes with normal ROM, vascular exam Details: dorsalis pedis pulse present and motor-sensory exam Details: light-touch normal; no tenderness Objective Data Vital Signs Vital Signs: Vital Signs - 24 hr 04/19/24 11:45 04/19/24 12:00 04/19/24 12:15 Temperature Pulse Rate 61 57 L 57 L Respiratory Rate 12 12 12 Blood Pressure 97/56 L 97/54 L 95/56 L Pulse Oximetry 100 98 98 Oxygen Delivery Simple Face Mask Room Air Room Air Oxygen Flow Rate 8 04/19/24 12:30 04/19/24 12:50 04/19/24 13:20 Temperature 35.9 C L 36.2 C L Pulse Rate 59 L 59 L 57 L Respiratory Rate 12 12 13 Blood Pressure 95/56 L 95/53 L 101/58 L Pulse Oximetry 98 100 100 Oxygen Delivery Room Air Oxygen Jose
--- NOTE | 2024-04-20 11:45 | PM.DS ---
DS: Admitting Diagnosis Discharge Date 04/20/24 Admitting Diagnosis Right Hip DJD DS: Discharge Diagnosis Discharge Diagnosis (1) S/P total hip arthroplasty: Qualifiers: Laterality: right Qualified Code(s): Z96.641 - Presence of right artificial hip joint Code(s): Z96.649 - Presence of unspecified artificial hip joint Status: Acute Assessment and Plan: POD #1 : Right KESHA Continue PT/OT. WBAT. Walker. HIGH FALL RISK. Continue pain control. Ice Hip. Protect skin. DVT prophylaxis with Aspirin. SCDs. Incentive Spirometry Use reviewed. Monitor Dressing. Change prior to discharge. Bowel Regimen. Dispo: Home with Home Health pending progress with PT/OT Plan Reviewed history, exam, radiographs and current labs with attending MD and covering surgeon, Dr. Escudero, who agrees with current plan as indicated above. No further recommendations from Dr. Escudero at this time. DS: Summary Hospital Course Reason for hospitalization: Right KESHA Hospital Course: 48 year old male admitted s/p Right KESHA for postoperative medical management, pain control and mobilization with PT/OT. Patient progressed well with PT/OT. Pain and vitals remained stable throughout. The patient has been cleared to be discharged home with home health at this time. All discharge care instructions reviewed at depth. New medications reviewed. Follow up planned for 3 weeks in the outpatient orthopedic clinic with Dr. Escudero. Dr. Escudero in agreement with safe discharge at this time. Status at Discharge Functional status at discharge: uses cane/walker Overall status at discharge: patient is progressing back to baseline Time Spent with Patient Time attestation: Total time spent providing and/or coordinating discharge services: Exam Const: General: comfortable and no acute distress Resp: Effort & Inspection: normal respiratory effort Cardio: Rate: regular rate Rhythm: regular rhythm GI: Inspection: non-distended Skin: General skin exam: normal color Other: Incision right hip c/d/i. Surrounding tissue without redness/warmth. Mild swelling consistent with recent surgery. No drainage. Neuro: Cognition (Neuro): normal cognition Speech: normal speech Extrem: Right lower extremity: normal to inspection, normal capillary refill, hip/thigh Details: tenderness Location: of the hip (Thigh soft ) Location: laterally and anteriorly, swelling Location: at the hip, abnormal ROM (limited consistent with recent surgery ) Details: pain with active ROM during and pain with passive ROM during and other (Incision c/d/i. ); no deformity and no unusual warmth, knee Details: normal to inspection; no tenderness and no swelling, lower leg (Negative Edgar's Sign ) Details: normal to inspection and no edema; no tenderness, ankle (+ankle dorsiflexion/plantarflexion) Details: normal to inspection and no edema; no tenderness, no swelling and no ecchymosis and foot Details: normal capillary refill, toes with normal ROM, vascular exam Details: dorsalis pedis pulse present and motor-sensory exam Details: light-touch normal; no tenderness DS: Data Data Completed and Pending Labs on day of discharge: Labs from last 24 hours 04/20/24 05:40 WBC 9.3 RBC 3.34 L Hgb 10.6 L D Hct 32.5 L MCV 97.3 MCH 31.7 MCHC 32.6 RDW 13.3 Plt Count 146 L MPV 10.4 Immature Gran % (Auto) 0.5 Neut % (Auto) 81.3 H Lymph % (Auto) 9.6 L [place] % (Auto) 7.8 Eos % (Auto) 0.6 Baso % (Auto) 0.2 Lymph # (Auto) 0.89 L [place] # (Auto) 0.7 H Eos # (Auto) 0.1 Baso # (Auto) 0.0 Abs Immat Gran (auto) 0.05 H Absolute Neuts (auto) 7.5 H Absolute Nucleated RBC 0.000 Nucleated RBC % 0.0 Sodium 137 Potassium 4.5 Chloride 102 Carbon Dioxide 31 H Anion Gap 4 BUN 21 H D Creatinine 0.70 Estim Creat Clear Calc 132 Estimated GFR > 60 Glucose 105 Calcium 8.2 L Discharge Plan Discharge Patient Disposition: Home Health Service Disch
[2024-04-20 11:57] VITALS: BP 113/64; PULSE 64; TEMP 36.2; O2SAT 100
== END 2024-04-20 13:00 | disposition home health service (06) ==
LOC: ANHSURGERY 05:56 → ANH3MEDSUR 12:39
PROVIDERS: PCP Nurse Practitioner Family; Visit Provider Orthopaedic Surgery
PROC: (CPT 27130; principal; 2024-04-19 07:30)
DX: M16.11 Unilateral primary osteoarthritis, right hip (principal); D47.Z2 Castleman disease; I10 Essential (primary) hypertension; E78.5 Hyperlipidemia, unspecified; F41.1 Generalized anxiety disorder; E53.8 Deficiency of other specified B group vitamins; Z79.82 Long term (current) use of aspirin; Z87.891 Personal history of nicotine dependence; E66.9 Obesity, unspecified; Z68.31 Body mass index [BMI] 31.0-31.9, adult
CPT/HCPCS: 27130; 36415; 73501; 80048; 85025; 86850; 86900; 86901; 97110; 97116; 97161; 97165; 97530; A9270; C1713; C1776; J0171; J0330; J0690; J1200; J1596; J1885; J2250; J2270; J2371; J2405; J2704; J2795; J3010; J7120

== ENCOUNTER 2024-07-17 15:43 | Outpatient (CLI) | payer BC, SELFPAY ==
--- NOTE | ~2024-07-17 | XR_ITS ---
AP and lateral views of the right hip Clinical history: Pain Findings: No acute fracture or dislocation is seen. Right hip arthroplasty in place. No hardware comp lication. Soft tissues are unremarkable. Impression: No acute abnormality. Right hip arthroplasty. Reviewed, dictated and finalized at location . H TESTER QUALITY Impression: No acute abnormality. Right hip arthroplasty.
== END 2024-07-17 15:44 | disposition home or self-care (01) ==
PROVIDERS: PCP Nurse Practitioner Family; Visit Provider Nurse Practitioner Family
DX: M25.551 Pain in right hip (principal); Z96.641 Presence of right artificial hip joint
CPT/HCPCS: 73502

== ENCOUNTER 2024-08-22 08:13 | Outpatient (CLI) | payer BC, SELFPAY ==
--- NOTE | ~2024-08-22 | XR_ITS ---
XR hip RT min 2V Ordering provider: Pino Escudero MD History: . RT THR F/U X 3 months . Comparison: July 17, 2024 FINDINGS: BONES: No acute fracture or dislocation. HIP JOINT SPACES: Right hip arthroplasty. SACROILIAC JOINT SPACES/LUMBAR SPINE: The sacroiliac joint spaces are normal. Mild degenerative bahena es of the visualized lower lumbar spine. PUBIC SYMPHYSIS: Normal. SOFT TISSUES: Normal. IMPRESSION: No acute osseous abnormality pelvis and right hip. Right hip arthroplasty. Reviewed, dictated and finalized at location A. [employer]
== END 2024-08-22 08:14 | disposition home or self-care (01) ==
LOC: CHSIMG 08:15
PROVIDERS: PCP Nurse Practitioner Family; Visit Provider Orthopaedic Surgery
DX: M25.551 Pain in right hip (principal); Z96.641 Presence of right artificial hip joint
CPT/HCPCS: 73502